=== PATIENT | male | born 1945 | race Caucasian/White ===

== ENCOUNTER 2016-10-06 11:31 | Emergency (ER) | payer MEDICARE ==
[~2016-10-06] VITALS: Ht 182.9 cm; Wt 65.8 kg
[~2016-10-06 11:31] MED LIST: ASPIR 8181 MG PO; ASPIRIN EC81 MG PO; INDOMETHACIN50 MG PO; LASIX20 MG PO; LIPITOR80 MG PO; LISINOPRIL10 MG PO; NITROSTAT0.4 MG SL; PANTOPRAZOLE SO40 MG PO; PLAVIX75 MG PO; TOPROL XL50 MG PO
--- OUTSIDE RECORDS SUMMARY | 2016-10-06 11:52 | XMS ---
Demographics + + + | Address | [address] | | | [place] [address] | + + + | Preferred Language | Unknown | + + + | Marital Status | Unknown | + + + | Restorationist Affiliation | Unknown | + + + | Race | Unknown | + + + | Ethnic Group | Unknown | + + + Author + + + | Author | [facility] | + + + | Organization | [facility] | + + + | Address | [address] | | | [place] [address] | + + + | Phone | | + + + Care Team Providers + + + + | Care Assistant To The Vice President Name | Role | Phone | + + + + Unavailable | Unavailable | + + + + PROBLEMS +---------+ + + +--------+ + + | Type | Condition | ICD9-CM | [id number] | Onset | Condition | SNOMED | | | | Code | Code | Dates | Status | Code | +---------+ + + +--------+ + + | Problem | Carotid | R09.89 | | | Active | [id number] | | | bruit | | | | | | +---------+ + + +--------+ + + | Problem | HTN | | I10 | | Active | 43843182 | | | (hypertens | | | | | | | | ion) | | | | | | +---------+ + + +--------+ + + | Problem | ASCVD | I25.10 | | | Active | 13951735 | | | (arteriosc | | | | | | | | lerotic | | | | | | | | cardiovasc | | | | | | | | ular | | | | | | | | disease) | | | | | | +---------+ + + +--------+ + + | Problem | Thrombocyt | D69.6 | | | Active | 128709668 | | | openia | | | | | | +---------+ + + +--------+ + + | Problem | Left | I44.7 | | | Active | 18945657 | | | bundle | | | | | | | | branch | | | | | | | | block | | | | | | +---------+ + + +--------+ + + | Problem | Hypertensi | | I10 | | Active | 83356521 | | | on | | | | | | +---------+ + + +--------+ + + | Problem | History of | V13.59 | | | Active | | | | rotator | | | | | | | | cuff tear | | | | | | +---------+ + + +--------+ + + | Problem | Unspecifie | | I50.20 | | Active | 455294767 | | | d systolic | | | | | | | | | | | | | | | | (congestiv | | | | | | | | e) heart | | | | | | | | failure | | | | | | +---------+ + + +--------+ + + | Problem | Rib | S22.39XA | | | Active | 39897650 | | | fracture | | | | | | +---------+ + + +--------+ + + | Problem | NSTEMI | I21.4 | | | Active | 741801226 | | | (non-ST | | | | | | | | elevated | | | | | | | | myocardial | | | | | | | | | | | | | | | | infarction | | | | | | | | ) | | | | | | +---------+ + + +--------+ + + | Problem | Systolic | I50.42 | | | Active | [id number] | | | and | | | | | 26833 | | | diastolic | | | | | | | | CHF, | | | | | | | | chronic | | | | | | +---------+ + + +--------+ + + | Problem | Reduced | I50.9 | | | Active | 69154135 | | | ejection | | | | | | | | fraction | | | | | | | | concurrent | | | | | | | | with and | | | | | | | | due to | | | | | | | | acute | | | | | | | | heart | | | | | | | | failure | | | | | | +---------+ + + +--------+ + + | Problem | Chronic | | I50.22 | | Active | 343457715 | | | systolic | | | | | | | | (congestiv | | | | | | | | e) heart | | | | | | | | failure | | | | | | +---------+ + + +--------+ + + | Problem | 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 | | | Active | 210250133 | +---------+ + + +--------+ + + | Problem | Iron | | D50.9 | | Active | 72911689 | | | deficiency | | | | | | | | anemia | | | | | | +---------+ + + +--------+ + + | Problem | Former | Z87.891 | | | Active | 9592083 | | | smoker | | | | | | +---------+ + + +--------+ + + | Problem | Ischemic | | I25.5 | | Active | 181288218 | | | cardiomyop | | | | | | | | athy | | | | | | +---------+ + + +--------+ + + | Problem | Peripheral | 443.9 | | | Active | 207711427 | | | vascular | | | | | | | | disease | | | | | | +---------+ + + +--------+ + + | Problem | Mass of | R22.0 | | | Active | 048860583 | | | left | | | | | | | | submandibu | | | | | | | | lar region | | | | | | +---------+ + + +--------+ + + | Problem | Hypertensi | 401.9 | | | Active | 20033449 | | | on | | | | | | +---------+ + + +--------+ + + | Problem | Dilated | | 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 | | Active | 815632554 | | | cardiomyop | | | | | | | | athy | | | | | | +---------+ + + +--------+ + + | Problem | Carotid | I65.29 | | | Active | 28993810 | | | stenosis | | | | | | +---------+ + + +--------+ + + ALLERGIES + + + + +--------+ | Substance | Reaction | Event Type | Date | Status | + + + + +--------+ | Mobic | rash | Drug Allergy | Jul, | Active | + + + + +--------+ | Lisinopril | hives | Drug Allergy | Jul, | Active | + + + + +--------+ SOCIAL HISTORY No smoking Hx information available PLAN OF CARE + +---------+ | Activity | Details | + +---------+ +---+ | | +---+ + + + | Follow Up | 2 Months Reason:null | + + + VITAL SIGNS + + + + | Height | 72 in | 2016-08-11 | + + + + | Weight | 171 lbs | 2016-08-11 | + + + + | BMI | 23.19 kg/m2 | 2016-08-11 | + + + + | Temperature | 97.5 degrees Fahrenheit | 2016-08-11 | + + + + | Heart Rate | 71 /min | 2016-08-11 | + + + + | Blood pressure systolic | 119 mm Hg | 2016-08-11 | + + + + | Blood pressure diastolic | 75 mm Hg | 2016-08-11 | + + + + MEDICATIONS + + + + + + + +--------+ | Medicati | Instruct | Dosage | Frequenc | Start | End Date | Duration | Status | | on | ions | | y | Date | | | | + + + + + + + +--------+ | Pantopra | Orally | 1 tablet | 24h | | | | Active | | zole | Once a | | | | | | | | Sodium | day | | | | | | | | 40 MG | | | | | | | | + + + + + + + +--------+ | Spironol | Orally | 1 tablet | 24h | | | | Active | | actone | Once a | | | | | | | | 25 MG | day | | | | | | | + + + + + + + +--------+ | Aspirin | Orally | 1 tablet | 24h | | | | Active | | 81 MG | Once a | | | | | | | | | day | | | | | | | + + + + + + + +--------+ | Atorvast | Orally | 1 tablet | 24h | | | | Active | | atin | Once a | | | | | | | | Calcium | day | | | | | | | | 80 MG | | | | | | | | + + + + + + + +--------+ | Nitrogly | | | | | | | Active | | cerin | | | | | | | | | 0.4 MG | | | | | | | | + + + + + + + +--------+ | Ferrous | Orally | 1 tablet | | 09 June, | | 30 | Active | | Sulfate | twice a | | | 2017 | | day(s) | | | 325 (65 | day with | | | | | | | | Fe) MG | Vit C | | | | | | | + + + + + + + +--------+ | Furosemi | Orally | 1/2 | 12h | | | | Active | | de 40 MG | Twice a | tablet | | | | | | | | day | | | | | | | + + + + + + + +--------+ | Clopidog | Orally | 1 tablet | 24h | | | | Active | | rel | Once a | | | | | | | | Bisulfat | day | | | | | | | | e 75 MG | | | | | | | | + + + + + + + +--------+ | Metoprol | | | | | | | Active | | ol | | | | | | | | | Succinat | | | | | | | | | e 100 MG | | | | | | | | + + + + + + + +--------+ RESULTS No Results PROCEDURES + + + + + | Procedure | Date Ordered | Related Diagnosis | Body Site | + + + + + | Office Visit, Est | August 11, 2016 | | | | Pt., Level 3 | | | | + + + + + | [facility] MED/CURRENT | August 11, 2016 | | | | MED MERGE | | | | + + + + + IMMUNIZATIONS No Known Immunizations"
--- OUTSIDE RECORDS SUMMARY | 2016-10-06 11:52 | XMS ---
Demographics + + + | Address | [address] | | | [place] [address] | + + + | Preferred Language | Unknown | + + + | Marital Status | Unknown | + + + | Pentecostal Affiliation | Unknown | + + + | Race | Unknown | + + + | Ethnic Group | Unknown | + + + Author + + + | Author | [facility] | + + + | Organization | [facility] | + + + | Address | [address] | | | [place] [address] | + + + | Phone | | + + + Care Team Providers + + + + | Care Ingredient Scaler Name | Role | Phone | + + + + Unavailable | Unavailable | + + + + PROBLEMS + + + + + + + + | Type | Condition | ICD9-CM | [id number] | Onset | Condition | SNOMED | | | | Code | Code | Dates | Status | Code | + + + + + + + + | Problem | Carotid | R09.89 | | | Active | 914216776 | | | bruit | | | | | | + + + + + + + + | Problem | HTN | | I10 | | Active | 74198274 | | | (hypertens | | | | | | | | ion) | | | | | | + + + + + + + + | Problem | ASCVD | I25.10 | | | Active | 40751558 | | | (arteriosc | | | | | | | | lerotic | | | | | | | | cardiovasc | | | | | | | | ular | | | | | | | | disease) | | | | | | + + + + + + + + | Problem | Thrombocyt | D69.6 | | | Active | 284672056 | | | openia | | | | | | + + + + + + + + | Problem | Left | I44.7 | | | Active | 69987968 | | | bundle | | | | | | | | branch | | | | | | | | block | | | | | | + + + + + + + + | Problem | Hypertensi | | I10 | | Active | 44935846 | | | on | | | | | | + + + + + + + + | Problem | History of | V13.59 | | | Active | | | | rotator | | | | | | | | cuff tear | | | | | | + + + + + + + + | Problem | Unspecifie | | I50.20 | | Active | 870739605 | | | d systolic | | | | | | | | | | | | | | | | (congestiv | | | | | | | | e) heart | | | | | | | | failure | | | | | | + + + + + + + + | Problem | Rib | S22.39XA | | | Active | 34918935 | | | fracture | | | | | | + + + + + + + + | Problem | NSTEMI | I21.4 | | | Active | 103946800 | | | (non-ST | | | | | | | | elevated | | | | | | | | myocardial | | | | | | | | | | | | | | | | infarction | | | | | | | | ) | | | | | | + + + + + + + + | Problem | Systolic | I50.42 | | | Active | 2805426239 | | | and | | | | | 03715 | | | diastolic | | | | | | | | CHF, | | | | | | | | chronic | | | | | | + + + + + + + + | Problem | Reduced | I50.9 | | | Active | 34737252 | | | ejection | | | [...] failure | | | | | | + + + + + + + + | Problem | Chronic | | I50.22 | | Active | 749612955 | | | systolic | | | | | | | | (congestiv | | | | | | | | e) heart | | | | | | | | failure | | | | | | + + + + + + + + | Problem | 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 | | | Active | 703267390 | + + + + + + + + | Problem | Iron | | D50.9 | | Active | 60893423 | | | deficiency | | | | | | | | anemia | | | | | | + + + + + + + + | Problem | Former | Z87.891 | | | Active | 8569760 | | | smoker | | | | | | + + + + + + + + | Problem | Ischemic | | I25.5 | | Active | 427059603 | | | cardiomyop | | | | | | | | athy | | | | | | + + + + + + + + | Problem | Peripheral | 443.9 | | | Active | 973294538 | | | vascular | | | | | | | | disease | | | | | | + + + + + + + + | Assessment | Hypotensio | | I95.9 | 18 July, | Active | 58380920 | | | n | | | 2017 | | | + + + + + + + + | Problem | Mass of | R22.0 | | | Active | 038834896 | | | left | | | | | | | | submandibu | | | | | | | | lar region | | | | | | + + + + + + + + | Problem | Hypertensi | 401.9 | | | Active | 23518351 | | | on | | | | | | + + + + + + + + | Assessment | Thrombocyt | D69.6 | | 18 July, | Active | 388210828 | | | openia | | | 2017 | | | + + + + + + + + | Problem | Dilated | | I42.0 | | Active | 254052926 | | | cardiomyop | | | | | | | | athy | | | | | | + + + + + + + + | Problem | Carotid | I65.29 | | | Active | 91816269 | | | stenosis | | | | | | + + + + + + + + ALLERGIES + + + + +--------+ | Substance | Reaction | Event Type | Date | Status | + + + + +--------+ | Mobic | rash | Drug Allergy | June, | Active | + + + + +--------+ | Lisinopril | hives | Drug Allergy | June, | Active | + + + + +--------+ SOCIAL HISTORY No smoking Hx information available PLAN OF CARE VITAL SIGNS + + + + | Height | 72 in | 2016-07-18 | + + + + | Weight | 169 lbs | 2016-07-18 | + + + + | BMI | 22.92 kg/m2 | 2016-07-18 | + + + + | Temperature | 98.0 degrees Fahrenheit | 2016-07-18 | + + + + | Heart Rate | 80 /min | 2016-07-18 | + + + + | Blood pressure systolic | 114 mm Hg | 2016-07-18 | + + + + | Blood pressure diastolic | 74 mm Hg | 2016-07-18 | + + + + MEDICATIONS + [...] + + + + + +--------+ | Lisinopr | Orally | 1 tablet | 24h | | | | Active | | il 40 MG | Once a | | | [...] + + + + + +--------+ | Vitamin | Orally | 1 tablet | | 08 July, | | 30 | Active | | C 250 MG | twice a | | | 2016 | | day(s) | | | | day with | | | | | | | | | Iron | | | | | | | + + + + + + + +--------+ | Ferrous | Orally | 1 tablet | | 08 July, | | 30 | Active | | Sulfate | twice a | | | 2016 | | day(s) | | | 325 [...] + + | Office Visit, Est | July 18, 2016 | | | | Pt., Level 3 | | | | + + + + + | [facility] MED/CURRENT | July 18, 2016 | | | | MED MERGE | | | | + + + + + IMMUNIZATIONS No Known Immunizations"
--- OUTSIDE RECORDS SUMMARY | 2016-10-06 11:52 | XMS ---
Demographics + + + | Address | [address] | | | [place] [address] | + + + | Preferred Language | Unknown | + + + | Marital Status | Unknown | + + + | Restorationism Affiliation | Unknown | + + + | Race | Unknown | + + + | Ethnic Group | Unknown | + + + Author + + + | Author | [facility] | + + + | Organization | [facility] | + + + | Address | [address] | | | [place] [address] | + + + | Phone | | + + + Care Team Providers + + + + | Care Print Line Feeder Name | Role | Phone | + + + + Unavailable | Unavailable | + + + + PROBLEMS + + + + + + + + | Type | Condition | ICD9-CM | [id number] | Onset | Condition | SNOMED | | | | Code | Code | Dates | Status | Code | + + + + + + + + | Problem | Hypertensi | 401.9 | | | Active | [id number] | | | on | | | | | | + + + + + + + + | Problem | Carotid | R09.89 | | | Active | 248240492 | | | bruit | | | | | | + + + + + + + + | Problem | Carotid | I65.29 | | | Active | 09618512 | | | stenosis | | | | | | + + + + + + + + | Problem | Systolic | I50.42 | | | Active | [id number] | | | and | | | | | 94853 | | | diastolic | | | | | | | | CHF, | | | | | | | | chronic | | | | | | + + + + + + + + | Problem | Unspecifie | | I50.20 | | Active | 814267370 | | | d systolic | | [...] | I50.9 | | | Active | 11543301 | | | ejection | | | [...] + + + + | Assessment | HTN | | I10 | 09 May, | Active | 84035619 | | | (hypertens | | | 2017 | | | | | ion) | | | | | | + + + + + + + + | Assessment | Hypotensio | | I95.9 | 09 June, | Active | 61983649 | | | n | | | 2017 | | | + + + + + + + + | Problem | HTN | | I10 | | Active | 86819527 | | | (hypertens | | | | | | | | ion) | | | | | | + + + + + + + + | Problem | ASCVD | I25.10 | | | Active | 48350654 | | | (arteriosc | | | [...] | S22.39XA | | | Active | 49050105 | | | fracture | | | | | | + + + + + + + + | Problem | NSTEMI | I21.4 | | | Active | 483148883 | | | (non-ST | | | [...] | | D50.9 | | Active | 54470549 | | | deficiency | | | | | | | | anemia | | | | | | + + + + + + + + | Problem | Former | Z87.891 | | | Active | 7837111 | | | smoker | | | [...] | I44.7 | | | Active | 04014168 | | | bundle | | | | | | | | branch | | | | | | | | block | | | | | | + + + + + + + + | Problem | Mass of | R22.0 | | | Active | 222239973 | | | left | | | | | | | | submandibu | | | | | | | | lar region | | | | | | + + + + + + + + | Problem | Dilated | | I42.0 | | Active | 332994903 | | | cardiomyop | | | | | | | | athy | | | | | | + + + + + + + + | Assessment | Right hip | M25.551 | | 08 July, | Active | 2345790509 | | | pain | | | 2016 | | [address] | + + + + + + + + | Problem | Chronic | | I50.22 | | Active | 610566012 | | | systolic | | | | | | | | (congestiv | | | | | | | | e) heart | | | | | | | | failure | | | | | | + + + + + + + + | Problem | Ischemic | | I25.5 | | Active | 105613045 | | | cardiomyop | | | | | | | | athy | | | | | | + + + + + + + + | Assessment | Thrombocyt | D69.6 | | 08 July, | Active | 720377930 | | | openia | | | 2016 | | | + + + + + + + + | Problem | 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 | | | Active | 674506212 | + + + + + + + + | Problem | Peripheral | 443.9 | | | Active | 610094617 | | | vascular | | | [...] + | Height | 72 in | 2016-07-08 | + + + + | Weight | 172 lbs | 2016-07-08 | + + + + | BMI | 23.32 kg/m2 | 2016-07-08 | + + + + | Temperature | 97.3 degrees Fahrenheit | 2016-07-08 | + + + + | Heart Rate | 70 /min | 2016-07-08 | + + + + | Blood pressure systolic | 81 mm Hg | 2016-07-08 | + + + + | Blood pressure diastolic | 54 mm Hg | 2016-07-08 | + + + + MEDICATIONS + [...] MG | twice a | | | 2017 | | day(s) | | | | [...] + + + + + +--------+ RESULTS + +--------+ + + | Name | Result | Date | Reference Range | + +--------+ + + | CBC with | | 2016-07-08 | | | Differential Count | | | | + +--------+ + + PROCEDURES + + + + + | Procedure | Date Ordered | Related Diagnosis | Body Site | + + + + + | Office Visit, Est | July 08, 2016 | | | | Pt., Level 4 | | | | + + + + + | [facility] MED/CURRENT | July 08, 2016 | | | | MED MERGE | | | | + + + + + IMMUNIZATIONS No Known Immunizations"
--- OUTSIDE RECORDS SUMMARY | 2016-10-06 11:52 | XMS ---
Demographics + + + | Address | [address] | | | [place] [address] | + + + | Preferred Language | Unknown | + + + | Marital Status | Unknown | + + + | Zoroastrian Affiliation | Unknown | + + + | Race | Unknown | + + + | Ethnic Group | Unknown | + + + Author + + + | Author | [facility] | + + + | Organization | [facility] | + + + | Address | [address] | | | [place] [address] | + + + | Phone | | + + + Care Team Providers + + + + | Care Service Desk Specialist Name | Role | Phone | + + + + Unavailable | Unavailable | + + + + PROBLEMS +---------+ + + +--------+ + + | Type | Condition | ICD9-CM | [id number] | Onset | Condition | SNOMED | | | | Code | Code | Dates | Status | Code | +---------+ + + +--------+ + + | Problem | Hypertensi | 401.9 | | | Active | 93408039 | | | on | | | | | | +---------+ + + +--------+ + + | Problem | Carotid | R09.89 | | | Active | 522968549 | | | bruit | | | | | | +---------+ + + +--------+ + + | Problem | Carotid | I65.29 | | | Active | 19389279 | | | stenosis | | | | | | +---------+ + + +--------+ + + | Problem | Systolic | I50.42 | | | Active | [id number] | | | and | | | | | 09832 | | | diastolic | | | | | | | | CHF, | | | | | | | | chronic | | | | | | +---------+ + + +--------+ + + | Problem | Unspecifie | | I50.20 | | Active | 490263240 | | | d systolic | | [...] | I50.9 | | | Active | 93651800 | | | ejection | | | [...] | | I10 | | Active | 73496263 | | | (hypertens | | | | | | | | ion) | | | | | | +---------+ + + +--------+ + + | Problem | ASCVD | I25.10 | | | Active | 06296045 | | | (arteriosc | | | | | | | | lerotic | | | | | | | | cardiovasc | | | | | | | | ular | | | | | | | | disease) | | | | | | +---------+ + + +--------+ + + | Problem | Rib | S22.39XA | | | Active | 93978627 | | | fracture | | | | | | +---------+ + + +--------+ + + | Problem | NSTEMI | I21.4 | | | Active | 107143493 | | | (non-ST | | | [...] | | D50.9 | | Active | 70355406 | | | deficiency | | | | | | | | anemia | | | | | | +---------+ + + +--------+ + + | Problem | Former | Z87.891 | | | Active | 0159650 | | | smoker | | | [...] | I44.7 | | | Active | 64504098 | | | bundle | | | | | | | | branch | | | | | | | | block | | | | | | +---------+ + + +--------+ + + | Problem | Mass of | R22.0 | | | Active | 133730106 | | | left | | | | | | | | submandibu | | | | | | | | lar region | | | | | | +---------+ + + +--------+ + + | Problem | Dilated | | I42.0 | | Active | 940477438 | | | cardiomyop | | | | | | | | athy | | | | | | +---------+ + + +--------+ + + | Problem | Chronic | | I50.22 | | Active | 883012543 | | | systolic | | | | | | | | (congestiv | | | | | | | | e) heart | | | | | | | | failure | | | | | | +---------+ + + +--------+ + + | Problem | Ischemic | | I25.5 | | Active | 072264849 | | | cardiomyop | | | | | | | | athy | | | | | | +---------+ + + +--------+ + + | Problem | 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 | | | Active | 635742662 | +---------+ + + +--------+ + + | Problem | Peripheral | 443.9 | | | Active | 623332242 | | | vascular | | | | | | | | disease | | | | | | +---------+ + + +--------+ + + ALLERGIES Unknown Allergies SOCIAL HISTORY No smoking Hx information available PLAN OF CARE VITAL SIGNS MEDICATIONS Unknown Medications RESULTS No Results PROCEDURES No Known procedures IMMUNIZATIONS No Known Immunizations"
--- OUTSIDE RECORDS SUMMARY | 2016-10-06 11:52 | XMS ---
Demographics + + + | Address | [address] | | | [place] [address] | + + + | Preferred Language | Unknown | + + + | Marital Status | Unknown | + + + | Buddhist Affiliation | Unknown | + + + | Race | Unknown | + + + | Ethnic Group | Unknown | + + + Author + + + | Author | [facility] | + + + | Organization | [facility] | + + + | Address | [address] | | | [place] [address] | + + + | Phone | | + + + Care Team Providers + + + + | Care Fabrication Welder Name | Role | Phone | + + + + Unavailable | Unavailable | + + + + PROBLEMS +---------+ + + +--------+ + + | Type | Condition | ICD9-CM | [id number] | Onset | Condition | SNOMED | | | | Code | Code | Dates | Status | Code | +---------+ + + +--------+ + + | Problem | Hypertensi | 401.9 | | | Active | 75594799 | | | on | | | | | | +---------+ + + +--------+ + + | Problem | Carotid | R09.89 | | | Active | 013349092 | | | bruit | | | | | | +---------+ + + +--------+ + + | Problem | Carotid | I65.29 | | | Active | 33560763 | | | stenosis | | | | | | +---------+ + + +--------+ + + | Problem | Systolic | I50.42 | | | Active | 9264152518 | | | and | | | | | 04436 | | | diastolic | | | | | | | | CHF, | | | | | | | | chronic | | | | | | +---------+ + + +--------+ + + | Problem | Unspecifie | | I50.20 | | Active | 442574991 | | | d systolic | | [...] | I50.9 | | | Active | 52107377 | | | ejection | | | [...] | | I10 | | Active | 13500103 | | | (hypertens | | | | | | | | ion) | | | | | | +---------+ + + +--------+ + + | Problem | ASCVD | I25.10 | | | Active | 29469289 | | | (arteriosc | | | | | | | | lerotic | | | | | | | | cardiovasc | | | | | | | | ular | | | | | | | | disease) | | | | | | +---------+ + + +--------+ + + | Problem | Rib | S22.39XA | | | Active | 14361621 | | | fracture | | | | | | +---------+ + + +--------+ + + | Problem | NSTEMI | I21.4 | | | Active | 345767082 | | | (non-ST | | | [...] | | D50.9 | | Active | 14409748 | | | deficiency | | | | | | | | anemia | | | | | | +---------+ + + +--------+ + + | Problem | Former | Z87.891 | | | Active | 9568048 | | | smoker | | | [...] | I44.7 | | | Active | 90384530 | | | bundle | | | | | | | | branch | | | | | | | | block | | | | | | +---------+ + + +--------+ + + | Problem | Mass of | R22.0 | | | Active | 999376366 | | | left | | | | | | | | submandibu | | | | | | | | lar region | | | | | | +---------+ + + +--------+ + + | Problem | Dilated | | I42.0 | | Active | 559226730 | | | cardiomyop | | | | | | | | athy | | | | | | +---------+ + + +--------+ + + | Problem | Chronic | | I50.22 | | Active | 363542256 | | | systolic | | | | | | | | (congestiv | | | | | | | | e) heart | | | | | | | | failure | | | | | | +---------+ + + +--------+ + + | Problem | Ischemic | | I25.5 | | Active | [id number] | | | cardiomyop | | | | | | | | athy | | | | | | +---------+ + + +--------+ + + | Problem | 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
== END 2016-10-06 15:50 | disposition short-term general hospital (02) ==
LOC: ED 11:31
DX: K40.30 Unilateral inguinal hernia, with obstruction, without gangrene, not specified as recurrent (principal); I10 Essential (primary) hypertension; R73.03 Prediabetes; I25.2 Old myocardial infarction; J90 Pleural effusion, not elsewhere classified; N20.0 Calculus of kidney; N28.1 Cyst of kidney, acquired; Z87.891 Personal history of nicotine dependence; Z79.82 Long term (current) use of aspirin; Z79.899 Other long term (current) drug therapy; Z95.0 Presence of cardiac pacemaker; Z95.5 Presence of coronary angioplasty implant and graft; Z96.643 Presence of artificial hip joint, bilateral; Z95.1 Presence of aortocoronary bypass graft
CPT/HCPCS: 74177; 80048; 81001; 85025; 85610; 96374; 96375; 99285; J2405; J3010; J7030; Q9967